=== PATIENT | male | born 1945 | race Caucasian/White ===

== ENCOUNTER 2018-07-31 08:43 | Day surgery (SDC) | payer MEDICARE, BC ==
[~2018-07-31] VITALS: Ht 182.9 cm; Wt 110.9 kg
[2018-07-31] VITALS (31 sets, daily range): BP systolic 112–139; BP diastolic 64–92; PULSE 77–100; RESP 11–21; Ht 182.9 cm; Wt 110.9 kg
--- NOTE | 2018-07-31 06:07 | HPN ---
Date/Time of Note Date/Time of Note DATE: 07/31/18 TIME: 06:07 Interval H&P Admission Note Pt. seen H&P reviewed: No system changes CASH ROBLEDO MD Jul 31, 2018 06:07
--- NOTE | 2018-07-31 06:26 | OPR ---
Date/Time of Note Date/Time of Note DATE: 07/31/18 TIME: 06:24 Operative Report Procedure Date: Jul 31, 2018 Preoperative Diagnosis Right shoulder supraspinatus tendon tear Postoperative Diagnosis 1. Right shoulder rotator cuff tear (supraspinatus) 2. Right shoulder acromioclavicular joint arthritis 3. Right shoulder impingement 4. Right shoulder labral tearing and extensive synovitis Operation/Procedure Performed 1. Right shoulder arthroscopic rotator cuff repair 2. Right shoulder arthroscopic distal clavicle excision 3. Right shoulder arthroscopic acromioplasty 4. Right shoulder arthroscopic extensive debridement of glenohumeral joint Surgeon see signature line Counseling Center Manager Albino Carmichael PA-C Second Counseling Center Manager: VICTORIA FRY Anesthesia Type: general Estimated Blood Loss: minimal Transfusion none Specimen None Grafts/Implants See operative note Complications none Pt Condition Post Procedure: stable Disposition: PACU Procedure Description [employer]AR[employer] HELPER SURGEON: Albino Carmichael PA-C was asked to be present at my request as a result of the complexity associated with this procedure including positioning of the extremities, manipulation of the arthroscope and assistance with time. In my opinion the assistance offered by a rn surgical is insufficient and Albino should be compensated for his time. PROCEDURE IN DETAIL: Following the administration of general anesthesia supplemented with a peripheral nerve block for postoperative pain control, the patient was examined under anesthesia. Examination of the left shoulder revealed some stiffness including a forward flexion of about 130 abduction 80 maximal external rotation with mild crepitus anteriorly. The patient was then placed in the left lateral decubitus position. Sterile prep and drape was then undertaken of the left shoulder. Anterior and posterior glenohumeral portals were established. Glenohumeral arthroscopy revealed that the humeral and glenoid articular cartilage had significant grade 2 changes throughout. In addition, the humeral head had diffuse grade 2 changes within the area anterolaterally over the biceps tendon there was grade 3 in nature. The superior labrum was diffusely torn with extensive fraying that extended into the bicipital groove with severe synovitis. There was evidence of a type IV SLAP lesion, with severe synovitis. In addition, there was severe synovitis in the bicipital groove. The biceps was subluxed into the bicipital groove. There was significant detachment proximally. The subscapularis was visualized and there is a tear which included the supraspinatus with a very significant retraction. Further evaluation of the supraspinatus the a very large complete tear measuring approximately 5 cm from anterior to posterior and retracted up to the level of the glenoid. There was severe degenerative change within the remaining tendon footprint as well. It appeared that the avulsion had occurred more medially. There was a significant portion of the footprint that was remaining on the tuberosity with significant sclerotic changes consistent with a chronic tear in that area. Significant synovitis was noted in that space. The biceps was then prepped and delivered into the joint. Severe changes were noted with a near complete tear that extended very distally into the bicipital groove. The biceps tendon was then released and the degenerative portion was debrided. The stump in the superior labrum was then debrided down to stable tissue from 9:00 to the 3:00 as well as a synovectomy. There was a small remnant of the labrum that was stable. The more inferior labrum was normal. Tuberosity was then prepared in the tuberosity sclerosis was decorticated with a prominence also being resected. Extensive bursal reactive tissue was then debrided that could be seen from the inside of the joint. The subacromial space was then entered and very severe bursal reactive tissue was noted. There was very thickened coracoacromial ligament and severe arthritic changes in the acromioclavicular joint. The coracoacromial ligament was then released and the anterior acromion was then beveled to a flat area approximately 7 mm of the anterior acromion were resected. Following this the distal clavicle was then cleared of soft tissue and severe arthritic changes were noted a distal clavicle excision was then performed resecting 10 mm of the lateral clavicle. A good decompression was confirmed. The rotator cuff edges were then debrided and preparation of the area of the cuff avulsion down to a bleeding bed was undertaken. The edges of the generative rotator cuff tissue was then debrided extensively. As mentioned above, there was a very extensive, massive rotator cuff tear with significant retraction. Mobilization was then undertaken as much as possible. The more p osterior aspect mobilized fairly well. A 5.5 mm, triple loaded titanium anchor was then placed into the tuberosity and all of the sutures were then passed in a mattress fashion. Sliding, locking knots, the rotator cuff was then approximated posteriorly. An area measuring approximately 3 x 2 cm was still uncovered over the posterior aspect of the joint, secondary to the massive r etraction. The joint was then thoroughly irrigated, the deep tissues were approximated using 4-0 Monocryl, followed by a sterile dressing. A sling was then applied. The patient was awakened and transported to the recovery room in stable condition. CASH ROBLEDO MD Jul 31, 2018 06:26
[~2018-07-31 08:43] MED LIST: GLIM2TAB PO; LACTATED RINGER'S 1,000 ML IV* SCH; LOSA1TAB22 PO; ROSU20TA PO; SPIR50TA PO
[2018-07-31] MEDS ORDERED: EST2 PO (09:42)
[2018-07-31] MEDS ORDERED: METF500T24 PO (09:42)
[2018-07-31] MEDS ORDERED: SILD20TA PO (09:43)
[2018-07-31] MEDS ORDERED: METO-319 PO (09:43)
[2018-07-31] MEDS ORDERED: GABAPENTIN 300 MG CAP PO ONE (10:00)
[2018-07-31] MEDS ORDERED: BUPIVACAINE 0.5% (SDV) 30 ML, morphine SULFATE (PF) 8 MG, EPINEPHrine 0.3 MG, KETOROLAC... IRR SCH ×7 (10:00)
[2018-07-31] MEDS ORDERED: NEOSTIGMINE 10 MG INJ ONE (10:00)
[2018-07-31] MEDS ORDERED: GLYCOPYRROLATE 0.4 MG INJ ONE (10:00)
[2018-07-31] MEDS ORDERED: TRANEXAMIC ACID 1GM/100ML(PMX) 100 ML IVPB ONE (10:00)
[2018-07-31] MEDS ORDERED: DEXAMETHASONE 1 MG TAB PO ONE (10:00)
[2018-07-31] MEDS ORDERED: DESFLURANE 15 MIN ONE (10:00)
--- NOTE | 2018-07-31 10:10 | PREAC ---
Date/Time of Note Date/Time of Note DATE: 07/31/18 TIME: 10:09 Anesthesia Eval and Record Evaluation Time Pre-Procedure Interview DATE: 07/31/18 TIME: 10:09 Age 72 Sex male NPO: 8 hrs Preoperative diagnosis Right Shoulder Rotator Cuff Tear Planned procedure Right Shoulder Arthroscopy and Rotator Cuff Tear Past Medical History Past Medical History: Includes Cardio: HTN, Dyslipidemia Endo: Diabetes Musculoskeletal: Osteoarthritis GI: Obesity Surgery & Anesthesia Issues No known issue Meds Anticoagulation: No Beta Romelia within 24 hr: Yes Reason Beta Romelia not given: Pt. not on B-Romelia Reported Medications Sildenafil Citrate* (Sildenafil Citrate*) 20 Mg Tablet, 20 MG PO DAILY PRN for PRN, TAB 07/31/18 Metoprolol Succinate* (Toprol XL*) 50 Mg Tab.er.24h, 50 MG PO DAILY, #30 TAB 07/31/18 Estradiol* (Estrace*) 2 Mg Tab, 2 MG PO DAILY, TAB 07/31/18 Metformin Hcl* (Metformin Hcl*) 500 Mg Tablet, 500 MG PO WITH BREAKFAST DINNE, #60 TAB 07/31/18 Spironolactone* (Aldactone*) 50 Mg Tablet, 50 MG PO BID, #60 TAB 07/28/18 Rosuvastatin Calcium* (Crestor*) 20 Mg Tablet, 20 MG PO QHS, #30 TAB 07/28/18 Glimepiride* (Glimepiride*) 2 Mg Tablet, 2 MG PO WITH BREAKFAST, TAB 07/28/18 Losartan-Hydrochlorothiazide (Losartan-HCTZ) 50-12.5 Mg Tab, 1 TAB PO DAILY, TAB 07/28/18 Current Medications Tranexamic Acid 100 ml @ 200 mls/hr Pre-op ONCE IVPB ; Start 07/31/18 at 10:00; Stop 07/31/18 at 10:29 Bupivacaine HCl/ Morphine Sulfate/ Epinephrine/ Ketorolac Tromethamine/ Clonidine/Sodium Chloride/ Vancomycin HCl INTRA-OP IRR ; Start 07/31/18 at 10:00 Lactated Ringer's 1,000 ml @ 0 mls/hr Q0M IV* Last administered on 07/31/18at 09:49; Admin Dose 20 MLS/HR; Start 07/31/18 at 07:00 Meds reviewed: Yes Allergies Coded Allergies: No Known Allergy (Unverified , 07/31/18) Allergies Reviewed: Yes Labs/Studies Labs Reviewed: Reviewed by anesthesiologist test: N/A Studies: ECG (n/a), CXR (n/a) Pre-procedure Exam Airway: Adequate mouth opening, Adequate thyromental dist Mallampati: Mallampati II Teeth: Normal Lung: Normal Heart: Normal ASA Physical Status ASA physical status: 3 Emergency: None Planned Anesthetic General/MAC: ETT Nerve block: Brachial plexus (right) Planned Pain Management Single shot nerve block, Parenteral pain med Pre-operative Attestations Prior to commencing anesthesia and surgery, the patient was re-evaluated, there was verification of: *The patient's identity *The results of appropriate recent lab work and preoperative vital signs *The above evaluation not changing prior to induction *Anesthetic plan, risk benefits, alternative and complications discussed with patient/family; questions answered; patient/family understands, accepts and wishes to proceed. WENCESLAO LUNDY MD Jul 31, 2018 10:10
[2018-07-31] MEDS ORDERED: PROPOFOL 20 ML ONE (10:11)
[2018-07-31] MEDS ORDERED: CEFAZOLIN 1 GM INJ ONE (10:12)
[2018-07-31] MEDS ORDERED: MIDAZOLAM 1 MG/ML 2 ML INJ ONE (10:12)
[2018-07-31] MEDS ORDERED: ROPIVACAINE 0.5 % 30 ML VIAL ONE (10:12)
[2018-07-31] MEDS ORDERED: ROCURONIUM 50 MG INJ ONE (10:12)
[2018-07-31] MEDS ORDERED: HYDROmorphONE 1 MG/5 ML IV SYRINGE IV PRN ×3 (10:30)
[2018-07-31] MEDS ORDERED: METOCLOPRAMIDE 10 MG INJ IV PRN (10:30)
[2018-07-31] MEDS ORDERED: ONDANSETRON 4 MG INJ IV PRN (10:30)
[2018-07-31] MEDS ORDERED: hydrALAzine 20 MG INJ IV PRN (10:30)
[2018-07-31] MEDS ORDERED: LABETALOL HCL 20MG INJ IV PRN (10:30)
[2018-07-31] MEDS ORDERED: EPHEDrine SULFATE 50 MG/5 ML SYG IV PRN (10:30)
[2018-07-31] MEDS ORDERED: MEPERIDINE 25 MG INJ IV PRN (10:30)
[2018-07-31] MEDS ORDERED: OXYCODONE/ACETAMINOPHEN (5/325) TAB PO PRN ×2 (10:30)
[2018-07-31] MEDS ORDERED: DIPHENHYDRAMINE 50 MG INJ IV PRN (10:30)
[2018-07-31] MEDS ORDERED: FENTAnyl 50 MCG/ML VIAL IV PRN ×3 (10:30)
[2018-07-31] MEDS ORDERED: DEXAMETHASONE 4 MG/ML 5 ML INJ ONE (12:14)
[2018-07-31] MEDS ORDERED: METOCLOPRAMIDE 10 MG INJ ONE (12:14)
[2018-07-31] MEDS ORDERED: KETOROLAC 30 MG INJ ONE (12:14)
[2018-07-31] MEDS ORDERED: hydrALAzine 20 MG INJ ONE (12:14)
[2018-07-31] MEDS ORDERED: ONDANSETRON 4 MG INJ ONE (12:14)
--- NOTE | 2018-07-31 13:05 | PDOCDIS ---
Discharge Instructions DIAGNOSIS Discharge Diagnosis Rotator cuff tear, massive CONDITION [id number] Patient Condition: [id number] Good HOME CARE INSTRUCTIONS: [id number] Diet Instructions: [id number] Reduced Calorie ACTIVITY: [id number] Activity Restrictions: [id number] Slowly Increase Activity Keep Limb Elevated [id number] Bathing Restrictions: [id number] Shower FOLLOW UP/APPOINTMENTS Follow-up Plan 2 weeks SCHOOL/WORK RELEASE May return to School/Work with: With Restrictions School/Work Release Comment: 5 pound tabletop usage for 6 weeks CASH ROBLEDO MD Jul 31, 2018 13:05
[2018-07-31] MEDS ORDERED: NALOXONE (0.4 MG/ML) INJ ONE (13:27)
--- NOTE | 2018-07-31 13:31 | PAC ---
Date/Time of Note Date/Time of Note DATE: 07/31/18 TIME: 13:30 Post-Anesthesia Notes Post-Anesthesia Note Last documented vital signs Vital Signs Date Temp Pulse Resp B/P (MAP) Pulse Ox O2 O2 Flow FiO2 Time Delivery Rate 07/31/18 98.0 77 16 125/84 98 Face Mask 8 L 13:24 (98) Activity: WNL Respiratory function: WNL Cardiovascular function: WNL Mental status: Baseline Pain reasonably controlled: Yes Hydration appropriate: Yes Nausea/Vomiting absent: Yes WENCESLAO LUNDY MD Jul 31, 2018 13:31
== END 2018-07-31 17:17 | disposition home or self-care (01) ==
LOC: SDS 08:43
PROVIDERS: ATTEND Orthopaedic Surgery
DX: M75.101 Unspecified rotator cuff tear or rupture of right shoulder, not specified as traumatic (principal); M25.811 Other specified joint disorders, right shoulder; M65.811 Other synovitis and tenosynovitis, right shoulder; M19.011 Primary osteoarthritis, right shoulder; E11.9 Type 2 diabetes mellitus without complications; I10 Essential (primary) hypertension; E87.5 Hyperkalemia
CPT/HCPCS: 29823; 29824; 29826; 29827; 82962; J0171; J0360; J0690; J0735; J1100; J1170; J1885; J2250; J2274; J2310; J2405; J2710; J2765; J2795; J3010; J3370